=== PATIENT | male | born 1970 | race Caucasian/White ===

== ENCOUNTER 2020-07-13 07:15 | Day surgery (SDC) | payer OTHER ==
[~2020-07-13] VITALS: Ht 170.2 cm; Wt 122.5 kg
[2020-07-13 08:44] VITALS: BP 127/73
[2020-07-13 12:05] VITALS: BP 140/93
== END 2020-07-13 14:25 | disposition home or self-care (01) ==
LOC: GI 07:15 → OR 11:00 → GI 14:25
PROVIDERS: ATTEND Internal Medicine Gastroenterology
DX: K62.5 Hemorrhage of anus and rectum (principal); K64.1 Second degree hemorrhoids; R73.03 Prediabetes; D64.9 Anemia, unspecified; F32.9 Major depressive disorder, single episode, unspecified; F15.20 Other stimulant dependence, uncomplicated; E78.5 Hyperlipidemia, unspecified; E66.9 Obesity, unspecified; Z68.41 Body mass index [BMI] 40.0-44.9, adult; Z79.899 Other long term (current) drug therapy
CPT/HCPCS: 45378; J1200; J1610; J2250; J2310; J3010; J3490